=== PATIENT | male | born 1980 | race Caucasian/White ===

== ENCOUNTER 2017-09-28 18:39 | Emergency (ER) | payer OTHER ==
[2017-09-28 18:44] VITALS: RESP 18
[2017-09-28] MEDS ORDERED: PROPARACAINE 0.5% OPHTH DROPS 15 ML BTL LEFT EYE STA (18:59)
--- NOTE | 2017-09-28 19:10 | ED ---
Eye Problem HPI - General Chief complaint: Eye Problems Stated complaint: cleanser in eye Time Seen by Provider: 09/28/17 18:45 Source: patient Mode of arrival: ambulatory Limitations: no limitations - History of Present Illness Initial comments: 36-year-old male patient percents to the emergency department today for evaluation of left eye irritation and blurred vision after axilla squirting a cleaning solution into his left side. Patient states that around 4 PM he was cleaning his siding when the furnace cleaner he was using escorted back into the left eye. Patient states since then he has been having some left eye burning and clear tearing. States that he had did have a cloudy vision. Patient states that his symptoms are not intermittent with occasional burning irritation and some slight blurred vision. Patient states he did flush the eye immediately with water. States he looked up the medication a states that it was her high risk for eye damage. Patient denies any other injuries or symptoms. Patient denies any headache, neck pain, back pain, chest pain, shortness of breath, dizziness, weakness, abdominal pain, nausea, vomiting, or difficulties with bowel movements or urination. - Related Data Home Medications Medication Instructions Recorded Confirmed No Known Home Medications 09/28/17 09/28/17 Allergies Allergy/AdvReac Type Severity Reaction Status Date / Time No Known Allergies Allergy Verified 09/28/17 18:52 Review of Systems ROS Statement: Those systems with pertinent positive or pertinent negative responses have been documented in the HPI. ROS Other: All systems not noted in ROS Statement are negative. Past Medical History Past Medical History: No Reported History History of Any Multi-Drug Resistant Organisms: None Reported Additional Past Surgical History / Comment(s): varicose Past Psychological History: No Psychological Hx Reported Smoking Status: Light tobacco smoker Past Alcohol Use History: None Reported Past Drug Use History: None Reported General Exam Limitations: no limitations General appearance: alert, in no apparent distress, other (Some well-developed, well-nourished adult male patient in no acute distress. Vital signs upon presentation are temperature 98.4F, pulse 81, respirations 18, blood pressure 130/87, pulse ox 98% on room air.) Eye exam: Present: PERRL, EOMI, conjunctival injection (Left conjunctival injection. No drainage. PERLLA. ). Absent: normal appearance, scleral icterus, periorbital swelling ENT exam: Present: normal exam, normal oropharynx, mucous membranes moist Respiratory exam: Present: normal lung sounds bilaterally. Absent: respiratory distress, wheezes, rales, rhonchi, stridor Cardiovascular Exam: Present: regular rate, normal rhythm, normal heart sounds. Absent: systolic murmur, diastolic murmur, rubs, gallop, clicks Neurological exam: Present: alert, oriented X3, CN II-XII intact Psychiatric exam: Present: normal affect, normal mood Skin exam: Present: warm, dry, intact, normal color. Absent: rash Course Vital Signs 09/28/17 09/28/17 18:42 20:46 Temperature 98.4 F 98.1 F Pulse Rate 81 78 Respiratory 18 18 Rate Blood Pressure 130/87 128/74 O2 Sat by Pulse 98 98 Oximetry Medical Decision Making - Medical Decision Making 36 old male patient presents the emergency department today for evaluation of left eye irritation and discomfort after accidentally squirting out cleaning solution into it. Patient reported that the cleaning solution was made mostly of sodium hydrochloride. I did discuss the case with [facility] reports that this is a bleach solution. They recommend irrigating the eye and performing fluorescein stain to rule out watson or abrasions. We did instill 1000 mL of normal saline to Nico lens. Patient tolerated this procedure well. I did perform fluorescein stain with Wood's lamp examination which revealed no evidence of damage to the eye. Patient will be discharged home to follow-up with ophthalmology if his symptoms persist. He is instructed to use saline eyedrops for comfort. Return parameters were discussed in detail. He verbalizes understanding and agrees with this plan. Disposition Clinical Impression: Chemical exposure of eye Disposition: HOME SELF-CARE Condition: Good Instructions: Chemical Eye Watson (ED) Additional Instructions: Use saline over the counter to instill into the eye as needed. Follow up with ophthalmology for further evaluation if symptoms continue. Return here immediately for any new, worsening, or concerning symptoms. Is patient prescribed a controlled substance at d/c from ED?: No Referrals: Marcos Bruno DO [Primary Care Provider] - 1-2 days Mook Govea MD [STAFF PHYSICIAN] - 1-2 days Time of Disposition: 20:14
[2017-09-28 20:47] VITALS: BP 128/74; PULSE 78; TEMP 98.1
== END 2017-09-28 20:46 | disposition home or self-care (01) ==
LOC: EC 18:39
DX: Z77.098 Contact with and (suspected) exposure to other hazardous, chiefly nonmedicinal, chemicals (principal); F17.200 Nicotine dependence, unspecified, uncomplicated
CPT/HCPCS: 99283

== ENCOUNTER → 2018-02-28 | Outpatient (CLI) | payer OTHER ==
--- NOTE | 2018-02-28 13:30 | EST ---
EXERCISE STRESS DATE OF SERVICE: 02/28/2018 AGE: 37 SEX: Male HT: 5'8" WT: 209 pounds PROTOCOL: Koffi STAGE: III DURATION OF EXERCISE: 9 minutes HEART RATE REST: 68 BLOOD PRESSURE REST: 119/86 MAXIMUM HEART RATE ACHIEVED: 168 MAXIMUM BLOOD PRESSURE: 154/72 85% MPHR: 156 100% MPHR: 183 METS: 10.5 INDICATIONS: Vertigo, chest pain. CLINICAL INFORMATION: Baseline rhythm is sinus mechanism, rate 68, normal axis and intervals, poor R progression. Baseline blood pressure 119/86 mmHg. Patient exercised on Koffi protocol for 9 minutes reaching peak rate 168 beats per minute which is equal to 91% maximum predicted heart rate. Peak blood pressure 154/72 mmHg. Test was terminated secondary to fatigue. There was no chest pain. Electrocardiograph monitoring revealed no evidence of diagnostic ischemic ST deviation. CONCLUSION: 1. Average exercise tolerance with normal electrocardiograph response to exercise. 2. No chest discomfort during exercise. MMODL / IJN: [id number] /
== END ==
LOC: RADNMMAIN 10:06
PROVIDERS: ATTEND Family Medicine
DX: R06.02 Shortness of breath (principal)
CPT/HCPCS: 93017